=== PATIENT | male | born 1945 | race Caucasian/White ===

== ENCOUNTER 2017-01-11 12:19 | Emergency (ER) | payer MEDICARE ==
--- NOTE | 2017-01-11 12:42 | UC ---
Throat Pain/Nasal Ruiz HPI - History of Current Complaint Stated Complaint: LEFT FINGER INJURY PMH/Surg Hx/FS Hx/Imm Hx - Surgical History Surgical History: Yes Surgery Procedure, Year, and Place: ESOPHOGUS SURGERY FOR ACID REFLUX. RT EYE CATARACTS. CYST REMOVED BACK OF KNEE
[2017-01-11 12:49] VITALS: BP 173/87
--- NOTE | 2017-01-11 13:27 | RAD ---
INDICATION: Left hand laceration second and third digits. TECHNIQUE: 4 views of the left hand were obtained. FINDINGS: There is soft tissue swelling in the second and third fingers. No fracture is seen. Incidental note is made of a small radiopaque foreign body measuring 2 mm which projects in the soft tissues anterior and medial to the fifth metacarpal. IMPRESSION: SOFT TISSUE INJURY, NO FRACTURE IS SEEN.
--- NOTE | 2017-01-11 13:32 | UC ---
Upper Extremity HPI - HPI Summary HPI Summary: 71 year old male presents with complains of left 3rd/4th finger superficial laceration with chainsaw. - History of Current Complaint Chief Complaint: UCLaceration Stated Complaint: LEFT FINGER INJURY Time Seen by Provider: 01/11/17 12:43 Hx Obtained From: Patient Onset/Duration: Sudden Onset Severity Initially: Moderate Severity Currently: Moderate Pain Scale Used: 0-10 Numeric - 4 - Allergies/Home Medications Allergies/Adverse Reactions: Allergies Allergy/AdvReac Type Severity Reaction Status Date / Time No Known Allergies Allergy Verified 01/11/17 12:49 Home Medications: Home Medications Donepezil TAB* [Aricept 5 MG TAB*] 5 mg PO DAILY 01/11/17 [History Confirmed ] Esomeprazole Magnesium [Nexium 24Hr] 20 mg PO DAILY 01/11/17 [History Confirmed 01/11/17] FLUoxetine CAP* [PROzac CAP*] 10 mg PO DAILY 01/11/17 [History Confirmed ] Lisinopril [Lisinopril 30 MG-] 30 mg PO DAILY 01/11/17 [History Confirmed ] Meloxicam 7.5 mg PO TID 01/11/17 [History Confirmed 01/11/17] Primidone TAB(*) [Mysoline TAB(*)] 50 mg PO BID 01/11/17 [History Confirmed ] PMH/Surg Hx/FS Hx/Imm Hx Previously Healthy: Yes - Surgical History Surgical History: Yes Surgery Procedure, Year, and Place: ESOPHAGUS SURGERY FOR ACID REFLUX. RT EYE CATARACTS. CYST REMOVED BACK OF KNEE. GALLBLADDER, APPENDIX AND PORTION OF COLON REMOVED IN ONE SX - Social History Alcohol Use: None Substance Use Type: None Smoking Status (MU): Former Smoker When Did the Patient Quit Smoking/Using Tobacco: AGE 29 Review of Systems Constitutional: Negative Skin: Other - left hand 3rd/4th finger superficial laceration. Eyes: Negative ENT: Negative Respiratory: Negative Cardiovascular: Negative Gastrointestinal: Negative Genitourinary: Negative Motor: Negative Neurovascular: Negative Musculoskeletal: Negative Neurological: Negative Psychological: Negative All Other Systems Reviewed And Are Negative: Yes Physical Exam Triage Information Reviewed: Yes Vital Signs: Initial Vital Signs Temp 36.5 C 01/11/17 12:41 Pulse 56 01/11/17 12:41 Resp 12 01/11/17 12:41 BP 173/87 01/11/17 12:41 Pulse Ox 99 01/11/17 12:41 Vital Signs Reviewed: Yes Eye Exam: Normal ENT Exam: Normal Dental Exam: Normal Neck exam: Normal Neck: Positive: 1 Respiratory Exam: Normal Cardiovascular Exam: Normal Abdominal Exam: Normal Musculoskeletal Exam: Normal Neurological Exam: Normal Psychological Exam: Normal Skin: Positive: Other - superficial laceration 3rd/4th left hand Upper Extremity Course/Dx - Differential Dx/Diagnosis Provider Diagnoses: left 3rd/4th finger superficial laceration Discharge - Discharge Plan Condition: Stable Disposition: HOME Prescriptions: Sulfamethox/Trimethoprim DS* [Bactrim DS 800/160 TAB*] 1 tab PO BID #14 tab Patient Education Materials: Acute Wound Care (ED) Referrals: [facility] [Primary Care Provider] - Additional Instructions: WOUND CARE REFERRAL (UNIQUE)
[2017-01-11] MEDS ORDERED: Tetan/Diph/Pertus SYR(Tdap)* 0.5 ML SYR(BOOSTRIX) use SYR IM ONE (13:46)
== END 2017-01-11 13:58 | disposition home or self-care (01) ==
LOC: UCCORT 12:19
DX: S61.215A Laceration without foreign body of left ring finger without damage to nail, initial encounter (principal); W31.2XXA Contact with powered woodworking and forming machines, initial encounter; Y93.9 Activity, unspecified; Y92.9 Unspecified place or not applicable; Y99.9 Unspecified external cause status
CPT/HCPCS: 90471; 90715; 99212; G0463